=== PATIENT | female | born 1990 | race Caucasian/White ===

== ENCOUNTER → 2016-08-02 | Outpatient (REF) | payer OTHER | LOC: M LAB REF 16:30 | PROVIDERS: ATTEND Physician Assistant | DX: R21 Rash and other nonspecific skin eruption (principal) ==

== ENCOUNTER → 2016-09-29 | Outpatient (REF) | payer OTHER ==
[2016-09-29 16:02] LABS: MEAN CORPUSCULAR HEMOGLOBIN 32.6 pg (27.0-33.0); MEAN CORPUSCULAR VOLUME 95.9 fl (80.0-96.0); RED CELL DISTRIBUTION WIDTH 11.6 % (11.5-14.5); WHITE BLOOD COUNT 4.6 K/mm3 (4.0-10.0)
[2016-09-29 16:40] LABS: ALBUMIN 3.9 GM/DL (3.2-5.2); ALBUMIN/GLOBULIN RATIO 1.22 (1.00-1.93); ALKALINE PHOSPHATASE 43 U/L (45-117); ALT/SGPT 24 U/L (12-78); ANION GAP 9 MEQ/L (8-16); AST/SGOT 17 U/L (15-37); BILIRUBIN,TOTAL 1.4 MG/DL (0.2-1.0); BLOOD UREA NITROGEN 13 MG/DL (7-18); CALCIUM LEVEL 8.7 MG/DL (8.5-10.1); CARBON DIOXIDE LEVEL 28 MEQ/L (21-32); CHLORIDE LEVEL 102 MEQ/L (98-107); CHOLESTEROL LEVEL 163 MG/DL (<200); CREATININE FOR GFR 0.65 MG/DL (0.55-1.02); GLOMERULAR FILTRATION RATE > 60.0 (>60); GLUCOSE, FASTING 75 MG/DL (70-105); MAGNESIUM LEVEL 2.1 MG/DL (1.8-2.4); POTASSIUM SERUM 3.8 MEQ/L (3.5-5.1); SODIUM LEVEL 139 MEQ/L (136-145); TOTAL PROTEIN 7.1 GM/DL (6.4-8.2); TRIGLYCERIDES LEVEL 47 MG/DL (<150)
== END ==
LOC: M SFHCSACK 09:12
PROVIDERS: ATTEND Physician Assistant
DX: Z00.00 Encounter for general adult medical examination without abnormal findings (principal)

== ENCOUNTER → 2017-01-25 | Outpatient (CLI) | payer OTHER ==
[2017-01-25 14:38] LABS: BASO % 0.1 % (0.0-1.0); EOS # 0.1 K/mm3 (0.0-0.50); EOS % 0.8 % (0.0-3.0); LARGE UNSTAINED CELL # 0.1 K/mm3 (0.0-0.4); LYMPH # 1.4 K/mm3 (1.5-6.5); LYMPH % 15.2 % (24.0-44.0); MEAN CORPUSCULAR HEMOGLOBIN 32.5 pg (27.0-33.0); MEAN CORPUSCULAR HGB CONC 34.5 g/dl (32.0-36.5); MEAN CORPUSCULAR VOLUME 94.3 fl (80.0-96.0); MONO # 0.3 K/mm3 (0.0-0.8); MONO % 3.1 % (0.0-5.0); NEUTROPHILS # 6.6 K/mm3 (1.8-7.7); NEUTROPHILS % 79.8 % (36.0-66.0); PLATELET COUNT, AUTOMATED 160 k/mm3 (150-450); RED CELL DISTRIBUTION WIDTH 11.8 % (11.5-14.5); WHITE BLOOD COUNT 8.3 K/mm3 (4.0-10.0)
[2017-01-26 12:03] LABS: HBsAg Prenatal NEGATIVE (NEGATIVE)
== END ==
LOC: M WUC 11:33
PROVIDERS: ATTEND Advanced Practice Midwife
DX: Z34.81 Encounter for supervision of other normal pregnancy, first trimester (principal); Z3A.00 Weeks of gestation of pregnancy not specified

== ENCOUNTER → 2017-02-03 | Outpatient (REF) | payer OTHER | LOC: M LAB REF 13:14 | PROVIDERS: ATTEND Advanced Practice Midwife | DX: Z36 Encounter for antenatal screening of mother (principal); Z3A.00 Weeks of gestation of pregnancy not specified ==

== ENCOUNTER → 2017-05-13 | Outpatient (CLI) | payer OTHER ==
--- NOTE | 2017-05-13 16:28 | REP ---
Clinical: Anatomical evaluation. Comparison: 04/04/2017 . Findings: Examination demonstrates a single live intrauterine in breech presentation. motion is identified by technologist. Placenta is noted posteriorly and grade zero without evidence for placenta previa or abruption. Amniotic fluid volume is normal. Cervix measures 4.5 cm of in length and appears closed. No evidence for nuchal cord. Gestational age by LMP 23 weeks 4 days with UVALDO 09/05/2017 . Gestational age by current measurements 24 weeks 6 days with UVALDO 08/27/2017 . FHR equals 153 beats per minute. Estimated weight 791 grams ( 53rd percentile). Anatomical assessment demonstrates normal cranium/cord plexus, cavum, posterior fossa, lungs, four-chamber heart and left ventricular outflow tracts, diaphragm, stomach, cord insertion, kidneys/bladder, and extremities. A single umbilical artery again noted. Limited evaluation of the spine is again due to positioning. Impression: Single live intrauterine in breech presentation. Single umbilical artery again noted. Limited evaluation of the spine due to positioning. In conjunction with prior examination the anatomical assessment is otherwise complete and normal. Signed by Frank Townsend MD 05/13/2017 04:19 P
== END ==
LOC: M SMT 14:48
PROVIDERS: ATTEND Advanced Practice Midwife
DX: Z34.82 Encounter for supervision of other normal pregnancy, second trimester (principal)

== ENCOUNTER → 2017-05-30 | Outpatient (CLI) | payer OTHER ==
[2017-05-30 11:33] LABS: MEAN CORPUSCULAR HEMOGLOBIN 32.1 pg (27.0-33.0); MEAN CORPUSCULAR HGB CONC 33.7 g/dl (32.0-36.5); MEAN CORPUSCULAR VOLUME 95.3 fl (80.0-96.0); PLATELET COUNT, AUTOMATED 151 10^3/uL (150-450); RED CELL DISTRIBUTION WIDTH 12.5 % (11.5-14.5); WHITE BLOOD COUNT 9.5 10^3/uL (4.0-10.0)
== END ==
LOC: M SMT 08:44
PROVIDERS: ATTEND Advanced Practice Midwife
DX: Z34.82 Encounter for supervision of other normal pregnancy, second trimester (principal); Z3A.00 Weeks of gestation of pregnancy not specified
CPT/HCPCS: 36415; 82950; 85027; 86850; 86900; 86901; J2790

== ENCOUNTER → 2017-07-04 | Outpatient (CLI) | payer OTHER | LOC: M RAD 07:33 | DX: O28.9 Unspecified abnormal findings on antenatal screening of mother (principal); Z3A.31 31 weeks gestation of pregnancy | CPT/HCPCS: 76816 ==

== ENCOUNTER → 2017-08-04 | Outpatient (REF) | payer OTHER | LOC: M LAB REF 13:00 | DX: Z36.85 Encounter for antenatal screening for Streptococcus B (principal); Z3A.00 Weeks of gestation of pregnancy not specified | CPT/HCPCS: 87186 ==

== ENCOUNTER → 2017-08-09 | Outpatient (CLI) | payer OTHER | LOC: M RAD 08:55 | DX: Z36.4 Encounter for antenatal screening for fetal growth retardation (principal); Z3A.36 36 weeks gestation of pregnancy | CPT/HCPCS: 76816 ==

== ENCOUNTER 2017-09-01 08:34 | Inpatient (IN) | payer OTHER ==
[2017-09-01] MEDS ORDERED: PENICILLIN G POTASSIUM IV 5 MU in D5W MINI-BAG PLUS 100 ML IV (10:10)
[2017-09-01] MEDS: LR 1,000 ML IV ×2 (10:45→16:57)
[2017-09-01] MEDS: OXYTOCIN DRIP 30 UNITS in APPROPRIATE DILUENT 1 EA IV ×2 (11:09→20:20)
[2017-09-01 11:16] LABS: HEMATOCRIT 39.3 % (36.0-47.0); HEMOGLOBIN 13.2 g/dl (12.0-16.0); MEAN CORPUSCULAR HEMOGLOBIN 29.4 pg (27.0-33.0); MEAN CORPUSCULAR HGB CONC 33.6 g/dl (32.0-36.5); MEAN CORPUSCULAR VOLUME 87.5 fl (80.0-96.0); PLATELET COUNT, AUTOMATED 131 10^3/uL (150-450); RED BLOOD COUNT 4.49 10^6/uL (4.00-5.40); RED CELL DISTRIBUTION WIDTH 12.9 % (11.5-14.5); WHITE BLOOD COUNT 10.3 10^3/uL (4.0-10.0)
[2017-09-01] MEDS: PENICILLIN G POTASSIUM IV 5 MU in D5W MINI-BAG PLUS 100 ML IV (11:47)
[2017-09-01] MEDS ORDERED: PENICILLIN G POTASSIUM IV 2.5 MU in APPROPRIATE DILUENT 1 EA IV (14:15)
[2017-09-01] MEDS ORDERED: ePHEDrine SULFATE 25 MG/5 ML(5MG/ML) SYRINGE IV (16:06)
[2017-09-01] MEDS ORDERED: REFRIGERATOR IV KEYS XX (16:06)
[2017-09-01] MEDS ORDERED: diphenhydrAMINE INJ 50MG/ML VIAL (J1200) IV (16:06)
[2017-09-01] MEDS ORDERED: NALOXONE INJ 0.4 MG/1 ML VIAL (J2310) IV (16:06)
[2017-09-01] MEDS ORDERED: LACTATED RINGER'S 1000 ML IV (16:06)
[2017-09-01] MEDS ORDERED: EPIDURAL COMMENT XX (16:06)
[2017-09-01] MEDS ORDERED: EPIDURAL/PCA KEYS XX (16:06)
[2017-09-01] MEDS ORDERED: ONDANSETRON 4MG/2ML VIAL (J2405) IV (16:06)
[2017-09-01] MEDS ORDERED: FENTANYL/ROPIVACAINE/NACL BAG 200 ML EPIDURAL (16:06)
[2017-09-01] MEDS ORDERED: FENTANYL 2MCG/ML ROPIVACAINE 0.2% IN 0.9% NACL 200ML IVBAG As Ordered (16:33)
[2017-09-01] MEDS: PENICILLIN G POTASSIUM IV 2.5 MU in APPROPRIATE DILUENT 1 EA IV (16:57)
[2017-09-01] MEDS ORDERED: ePHEDrine SULFATE 25 MG/5 ML(5MG/ML) SYRINGE As Ordered (17:33)
[2017-09-01] MEDS ORDERED: ANUSOL HC CREAM 30GM TOP (20:30)
[2017-09-01] MEDS ORDERED: MOM 30ML SUSPENSION UDC PO (20:30)
[2017-09-01] MEDS ORDERED: DOCUSATE SODIUM 100 MG CAP PO (20:30)
[2017-09-01] MEDS ORDERED: METHYLERGONOVINE MALEATE 0.2 MG TAB PO (20:30)
[2017-09-02] MEDS: ACETAMINOPHEN 500 MG TAB PO ×3 (03:10→20:25)
[2017-09-02] MEDS: IBUPROFEN 800 MG TAB PO ×2 (03:56→15:28)
[2017-09-02] MEDS: DIBUCAINE 1% OINTMENT 30GM TOP ×2 (03:56→20:25)
[2017-09-02] MEDS: PRENATAL VITAMINS CHEWABLE TABLET PO (08:06)
[2017-09-02] MEDS: MEASLES,MUMPS,RUBELLA VACCINE INJ (MMR-II) (90707) SC (11:03)
[2017-09-02 11:27] LABS: FETAL SCREEN PROF. 1 1
[2017-09-02] MEDS: RHOGAM 300 MCG (1500 IU) INJ (J2790) IM (11:50)
[2017-09-03] MEDS: IBUPROFEN 800 MG TAB PO (05:47)
[2017-09-03] MEDS: PRENATAL VITAMINS CHEWABLE TABLET PO (08:50)
[2017-09-03] MEDS: ACETAMINOPHEN 500 MG TAB PO (08:50)
== END 2017-09-03 10:45 | disposition home or self-care (01) | DRG 775 ==
LOC: M LDO 08:34 → M LDI 09:34 → M OBS 22:05
PROVIDERS: Obstetrics & Gynecology; Pediatrics
PROC: 10E0XZZ Delivery of Products of Conception, External Approach (ICD-10-PCS; principal; 2017-09-01)
PROC: 0KQM0ZZ Repair Perineum Muscle, Open Approach (ICD-10-PCS; 2017-09-01)
PROC: 10907ZC Drainage of Amniotic Fluid, Therapeutic from Products of Conception, Via Natural or Artificial Opening (ICD-10-PCS; 2017-09-01)
PROC: 30233S1 Transfusion of Nonautologous Globulin into Peripheral Vein, Percutaneous Approach (ICD-10-PCS; 2017-09-02)
DX: O48.0 Post-term pregnancy (principal); Z37.0 Single live birth; Z3A.40 40 weeks gestation of pregnancy; O69.5XX0 Labor and delivery complicated by vascular lesion of cord, not applicable or unspecified; O99.824 Streptococcus B carrier state complicating childbirth; O70.1 Second degree perineal laceration during delivery; O29.5X Other complications of spinal and epidural anesthesia during pregnancy